=== PATIENT | male | born 1965 | race Caucasian/White ===

== ENCOUNTER 2018-06-24 20:29 | Inpatient (IN) | payer OTHER ==
[2018-06-24 20:48] LABS: ADD MAN DIFF? NO
[2018-06-24 20:52] LABS: BASOPHILS % 0.1 % (0.0-2.0); EOSINOPHILS % 0.1 % (0.0-7.0); HEMATOCRIT 25.8 % (42.0-52.0); HEMOGLOBIN 8.5 g/dl (14.0-18.0); LYMPHOCYTES % 12.6 % (15.0-51.0); MEAN CORPUSCULAR HEMOGLOBIN 26.4 pg (29.0-33.0); MEAN CORPUSCULAR HGB CONC 32.9 g/dl (32.0-37.0); MEAN CORPUSCULAR VOLUME 80.1 fl (82.0-101.0); MEAN PLATELET VOLUME 10.7 fl (7.4-10.4); MONOCYTE # 0.5 10^3/ul (0.3-0.9); NEUTROPHIL # 6.1 10^3/ul (1.6-7.5); NEUTROPHILS % 80.8 % (39.0-77.0); PLATELET COUNT 334 10^3/UL (140-415); RED BLOOD COUNT 3.22 10^6/ul (4.70-6.10); RED CELL DISTRIBUTION WIDTH 14.2 % (11.5-14.5)
[2018-06-24 20:52] LABS: WHITE BLOOD COUNT 7.5 10^3/ul (4.8-10.8)
[2018-06-24] MEDS: CEFEPIME 2GM/50 ML (PMX) 50 ML IVPB (20:54)
[2018-06-24 21:04] LABS: AADO2 Arterial 326.6 mmHg (7.0-24.0); Arterial Base Excess -7.4 mmol/L (-3.0-3); Arterial Blood Gas Oxygen Sat 99.4 mmHG (95.0-98.0); Arterial COHb 0.3 % (0.0-3.0); Arterial Fraction of Oxyhgb 98.8 % (93.0-99.0); Arterial HCO3 17.7 mmol/L (22.0-26.0); Arterial MetHb 0.3 % (0.0-1.5); Arterial pCO2 33.9 mmhg (35-45); Blood Gas IEPAP 15/5; Blood Gas PS 10; MODE MASK - BIPAP; Site Right Brachial
[2018-06-24 21:10] LABS: INR 1.12; PROTIME 14.5 Sec (11.9-14.9); PT RATIO 1.1
[2018-06-24 21:11] LABS: PARTIAL THROMBOPLASTIN TIME 38.4 Sec (23.0-35.0)
[2018-06-24 21:14] LABS: ALANINE AMINOTRANSFERASE 102 IU/L (13-69); ALBUMIN 3.5 g/dl (3.3-4.9); ALKALINE PHOSPHATASE 273 IU/L (42-121); ANION GAP 11 (5-13); ASPARTATE AMINO TRANSFERASE 76 IU/L (15-46); BILIRUBIN,INDIRECT 0.1 mg/dl (0-1.1); BILIRUBIN,TOTAL 0.1 mg/dl (0.2-1.3); BLOOD UREA NITROGEN 71 mg/dl (7-20); CALCIUM 7.7 mg/dl (8.4-10.2); CARBON DIOXIDE 21 mmol/L (21-31); CHLORIDE 95 mmol/L (97-110); CREATININE 5.53 mg/dl (0.61-1.24); Estimated GFR 11 mL/min (>60); GLUCOSE 121 mg/dl (70-220); POTASSIUM 4.8 mmol/L (3.5-5.1); SODIUM 127 mmol/L (135-144)
[2018-06-24 21:23] LABS: LIPASE 3466 U/L (23-300)
[2018-06-24] MEDS: IPRATROPIUM (NEB) 0.5 MG/2.5 ML AMP HHN (21:23)
[2018-06-24] MEDS: ALBUTEROL 0.083% (NEB) 2.5 MG/3 ML AMP HHN (21:24)
[2018-06-24 21:25] LABS: TROPONIN-I 0.078 ng/ml (0.000-0.120)
[2018-06-24] MEDS: VANCOMYCIN 1 GM (PMX) 250 ML IVPB (21:25)
[2018-06-24] MEDS: SOD CHLORIDE 0.9% 1,000 ML IV (21:56)
[2018-06-24] MEDS: ACETAMINOPHEN 325 MG TAB PO (21:57)
[2018-06-24] MEDS: DEXAMETHASONE 10 MG/ML 1 ML INJ IV (21:57)
[2018-06-24] MEDS ORDERED: NITROGLYCERIN 50 MG/D5W (PMX) 250 ML (22:11)
[2018-06-24] MEDS ORDERED: NITROGLYCERIN 50 MG/D5W (PMX) 250 ML IV (22:30)
[2018-06-24] MEDS ORDERED: DOCUSATE SODIUM 100 MG CAP PO (22:30)
[2018-06-24] MEDS: CEFTRIAXONE 1 GM INJ IM (22:30)
[2018-06-24] MEDS ORDERED: ONDANSETRON 4 MG INJ IV (22:30)
[2018-06-24] MEDS ORDERED: ACETAMINOPHEN 325 MG TAB PO (22:30)
[2018-06-24] MEDS ORDERED: morphine 2 MG INJ IV (22:30)
[2018-06-24] MEDS ORDERED: VANCOMYCIN IV PER PHARMACY XX (22:30)
[2018-06-24] MEDS: ROCURONIUM 50 MG INJ IV (22:36)
[2018-06-24] MEDS: ETOMIDATE 20 MG INJ IV (22:36)
[2018-06-24] MEDS ORDERED: MIDAZOLAM (DRIP) 50 mg/50 mL 50 ML IV (22:46)
[2018-06-24 22:57] LABS: B-TYPE NATRIURETIC PEPTIDE 5310 PG/ML (0-125); HEMOGLOBIN A1C 6.3 % (0-5.9)
[2018-06-24] MEDS: NORepinephrine 8MG/250 ML (PMX 250 ML IV (23:22)
[2018-06-24 23:23] LABS: AADO2 Arterial 273.7 mmHg (7.0-24.0); Arterial Base Excess -9.6 mmol/L (-3.0-3); Arterial Blood Gas Oxygen Sat 96.8 mmHG (95.0-98.0); Arterial COHb 0.3 % (0.0-3.0); Arterial HCO3 16.9 mmol/L (22.0-26.0); Arterial MetHb 0.5 % (0.0-1.5); Arterial pCO2 39.9 mmhg (35-45); MODE VENT - AC; Site Right Brachial
[2018-06-24] MEDS: MIDAZOLAM (DRIP) 50 mg/50 mL 50 ML IV (23:24)
[2018-06-24] MEDS: FUROSEMIDE 40 MG INJ IV (23:43)
[2018-06-25] MEDS ORDERED: ALBUTEROL/IPRATROPIUM (NEB) 3 ML AMP NEB (01:00)
[2018-06-25] MEDS ORDERED: ALBUTEROL 0.083% (NEB) 2.5 MG/3 ML AMP NEB (01:00)
[2018-06-25] MEDS: VANCOMYCIN 500 MG (PMX) 100 ML IVPB (01:07)
[2018-06-25 01:17] LABS: ADD UMIC YES; UR ASCORBIC ACID NEGATIVE (NEGATIVE); UR BACTERIA FEW /HPF (NONE SEEN); UR BILIRUBIN (Dip) NEGATIVE (NEGATIVE); UR BLOOD (Dip) 1+ mg/dL (NEGATIVE); UR CLARITY TURBID (CLEAR); UR COLOR AMBER (YELLOW); UR GLUCOSE (Dip) NEGATIVE (NEGATIVE); UR KETONES (Dip) TRACE mg/dL (NEGATIVE); UR LEUKOCYTE ESTERASE (Dip) NEGATIVE Leu/ul (NEGATIVE); UR MUCUS FEW /HPF (NONE SEEN); UR NITRITE (Dip) NEGATIVE (NEGATIVE); UR NONSQUAMOUS EPITHELIAL CELL 1 /HPF (NONE SEEN); UR RBC 96 /HPF (0-5); UR SPECIFIC GRAVITY (Dip) 1.018 (1.003-1.030); UR TOTAL PROTEIN (Dip) 3+ mg/dl (NEGATIVE); UR UROBILINOGEN (Dip) NEGATIVE (NEGATIVE); UR WBC 24 /HPF (0-5)
[2018-06-25 02:16] LABS: LACTIC ACID 0.8 mmol/L (0.5-2.0)
[2018-06-25 05:05] LABS: ANION GAP 17 (5-13); BLOOD UREA NITROGEN 75 mg/dl (7-20); CALCIUM 7.6 mg/dl (8.4-10.2); CARBON DIOXIDE 17 mmol/L (21-31); CHLORIDE 97 mmol/L (97-110); CREATININE 5.85 mg/dl (0.61-1.24); Estimated GFR 10 mL/min (>60); GLUCOSE 173 mg/dl (70-220); POTASSIUM 5.1 mmol/L (3.5-5.1); SODIUM 131 mmol/L (135-144)
[2018-06-25] MEDS: ALBUTEROL HFA 8 GM INHALER INH ×5 (05:06→20:02)
[2018-06-25] MEDS: IPRATROPIUM (HFA) 12.9 GM INHALER INH ×5 (05:06→20:02)
[2018-06-25 05:12] LABS: LIPASE 2404 U/L (23-300)
[2018-06-25] MEDS: PANTOPRAZOLE (EC) 40 MG TAB PO (06:00)
[2018-06-25] MEDS: FENTAnyl (DRIP) 1000 mcg/100mL 100 ML IV (09:19)
[2018-06-25] MEDS: ENOXAPARIN 30 MG/0.3 ML SYG SC (09:19)
[2018-06-25 09:27] LABS: TRIGLYCERIDES 155 mg/dl (0-149)
[2018-06-25] MEDS ORDERED: GLUCOSE GEL 15 GRAM TUBE BUCCAL (09:30)
[2018-06-25] MEDS ORDERED: GLUCOSE GEL 15 GRAM TUBE PO ×2 (09:30)
[2018-06-25] MEDS ORDERED: GLUCAGON 1 MG INJ IM (09:30)
[2018-06-25] MEDS ORDERED: DEXTROSE 50% 50 ML SYRINGE IV ×2 (09:30)
[2018-06-25] MEDS: ALBUMIN HUMAN 25% 100 ML IV ×2 (11:12→18:54)
[2018-06-25] MEDS: BUMETANIDE 12 MG in DEXTROSE 5% 72 ML IV (12:24)
[2018-06-25] MEDS: MIDAZOLAM (DRIP) 50 mg/50 mL 50 ML IV (14:02)
[2018-06-25] MEDS: INSULIN ASPART [NOVOLOG] 3 ML PEN SC ×3 (14:10→21:00)
[2018-06-25 16:50] LABS: SODIUM,URINE RANDOM 29 mmol/L (30-90)
[2018-06-25 17:00] LABS: CREATININE,URINE RANDOM 61.03 mg/dl (20-370); PROTEIN/CREAT RATIO 0.65 RATIO
[2018-06-26] MEDS: IPRATROPIUM (HFA) 12.9 GM INHALER INH ×4 (00:11→13:45)
[2018-06-26] MEDS: ALBUTEROL HFA 8 GM INHALER INH ×4 (00:11→13:45)
[2018-06-26] MEDS: INSULIN ASPART [NOVOLOG] 3 ML PEN SC ×4 (02:11→13:00)
[2018-06-26] MEDS: ALBUMIN HUMAN 25% 100 ML IV (03:02)
[2018-06-26] MEDS: MIDAZOLAM (DRIP) 50 mg/50 mL 50 ML IV ×2 (05:15→15:25)
[2018-06-26] MEDS: PANTOPRAZOLE (EC) 40 MG TAB PO (06:00)
[2018-06-26 06:38] LABS: ADD MAN DIFF? NO
[2018-06-26 06:42] LABS: ABNORMAL IP MESSAGE 1; HEMOGLOBIN 8.1 g/dl (14.0-18.0); LYMPHOCYTES # 0.4 10^3/ul (0.8-2.9); LYMPHOCYTES % 4.3 % (15.0-51.0); MEAN CORPUSCULAR HEMOGLOBIN 26.9 pg (29.0-33.0); MEAN CORPUSCULAR HGB CONC 33.8 g/dl (32.0-37.0); MEAN CORPUSCULAR VOLUME 79.7 fl (82.0-101.0); MEAN PLATELET VOLUME 11.2 fl (7.4-10.4); MONOCYTE # 0.4 10^3/ul (0.3-0.9); MONOCYTES % 4.1 % (0.0-11.0); NEUTROPHIL # 7.7 10^3/ul (1.6-7.5); NEUTROPHILS % 91.1 % (39.0-77.0); PLATELET COUNT 331 10^3/UL (140-415); POSITIVE DIFF @See below; RED BLOOD COUNT 3.01 10^6/ul (4.70-6.10); RED CELL DISTRIBUTION WIDTH 14.1 % (11.5-14.5)
[2018-06-26 06:42] LABS: WHITE BLOOD COUNT 8.5 10^3/ul (4.8-10.8)
[2018-06-26 07:18] LABS: ANION GAP 18 (5-13); BLOOD UREA NITROGEN 88 mg/dl (7-20); CALCIUM 7.6 mg/dl (8.4-10.2); CARBON DIOXIDE 18 mmol/L (21-31); CHLORIDE 99 mmol/L (97-110); CREATINE KINASE 133 IU/L (23-200); CREATININE 5.58 mg/dl (0.61-1.24); Estimated GFR 11 mL/min (>60); GLUCOSE 129 mg/dl (70-220); LIPASE 1546 U/L (23-300); SODIUM 135 mmol/L (135-144)
[2018-06-26 07:18] LABS: URIC ACID 13.2 mg/dl (3.1-7.9)
[2018-06-26] MEDS: ENOXAPARIN 30 MG/0.3 ML SYG SC (08:24)
[2018-06-26] MEDS: CEFTRIAXONE 1 GM/50 ML (PMX) 50 ML IVPB (10:09)
[2018-06-26 11:20] LABS: AADO2 Arterial 101.5 mmHg (7.0-24.0); Arterial Base Excess -4.9 mmol/L (-3.0-3); Arterial Blood Gas Oxygen Sat 92.7 mmHG (95.0-98.0); Arterial COHb 0.3 % (0.0-3.0); Arterial Fraction of Oxyhgb 92.1 % (93.0-99.0); Arterial HCO3 19.4 mmol/L (22.0-26.0); Arterial MetHb 0.4 % (0.0-1.5); Arterial pCO2 33.3 mmhg (35-45); MODE VENT - AC; Site Right Brachial
[2018-06-26] MEDS: CEFEPIME 1GM/50 ML (PMX) 50 ML IVPB (11:25)
[2018-06-26] MEDS: BUMETANIDE 2 MG in DEXTROSE 5% 17 ML IVPB (11:25)
[2018-06-26] MEDS: FENTAnyl (DRIP) 1000 mcg/100mL 100 ML IV (16:05)
== END 2018-06-26 15:55 | disposition short-term general hospital (02) | DRG 208 ==
LOC: E/R 20:29 → ICU 22:00
PROC: 5A1945Z Respiratory Ventilation, 24-96 Consecutive Hours (ICD-10-PCS; principal; 2018-06-24)
PROC: 0BH17EZ Insertion of Endotracheal Airway into Trachea, Via Natural or Artificial Opening (ICD-10-PCS; 2018-06-24)
PROC: 02HV33Z Insertion of Infusion Device into Superior Vena Cava, Percutaneous Approach (ICD-10-PCS; 2018-06-24)
PROC: B543ZZA Ultrasonography of Right Jugular Veins, Guidance (ICD-10-PCS; 2018-06-24)
PROC: 4A133R1 Monitoring of Arterial Saturation, Peripheral, Percutaneous Approach (ICD-10-PCS; 2018-06-24)
DX: J96.01 Acute respiratory failure with hypoxia (principal); J18.9 Pneumonia, unspecified organism; K85.90 Acute pancreatitis without necrosis or infection, unspecified; I71.02 Dissection of abdominal aorta; N17.0 Acute kidney failure with tubular necrosis; I77.73 Dissection of renal artery; E87.1 Hypo-osmolality and hyponatremia; N39.0 Urinary tract infection, site not specified; I13.0 Hypertensive heart and chronic kidney disease with heart failure and stage 1 through stage 4 chronic kidney disease, or unspecified chronic kidney disease; I50.9 Heart failure, unspecified; E66.01 Morbid (severe) obesity due to excess calories; E11.22 Type 2 diabetes mellitus with diabetic chronic kidney disease; N18.3 Chronic kidney disease, stage 3 (moderate); E11.21 Type 2 diabetes mellitus with diabetic nephropathy; E78.5 Hyperlipidemia, unspecified; D64.9 Anemia, unspecified
CPT/HCPCS: 31500; 36600; 71045; 76700; 80048; 80053; 81001; 81003; 82550; 82570; 82803; 82962; 83036; 83605; 83690; 83880; 84300; 84478; 84484; 84560; 85025; 85610; 85730; 87040; 87081; 87086; 89190; 93005; 93306; 94002; 94003; 94640; 94644; 94660; 94770; 96365; 96368; 96375; 99291-25